=== PATIENT | female | born 1960 | race Hispanic/Latino ===

== ENCOUNTER 2019-08-30 15:02 | Outpatient (CLI) | payer BC ==
--- NOTE | 2019-08-30 15:58 | BD ---
BONE DENSITOMETRY USING DEXA: HISTORY: Osteoporosis. FINDINGS: Lumbar Spine: BMD (g/cm2) L1 0.596 T-Score: -3.6 Z-Score: -2.3 L2 0.649 T-Score: -2.4 Z-Score: -2.1 L3 0.550 T-Score: -4.9 Z-Score: -3.4 L4 0.692 T-Score: -3.4 Z-Score: -1.9 L1-L4 0.622 T-Score: -3.9 Z-Score: -2.5 Femoral Neck: 0.793 T-Score: -0.5 Z-Score: 0.6 Total Femur: 0.862 T-Score: -0.7 Z-Score: 0.2 Impression: Osteoporosis. POS: [facility]
--- NOTE | 2019-08-30 16:43 | MMO ---
Bilateral MAMMO Bilat Screen [facility]. CLINICAL HISTORY: Patient is 58 years old and is seen for screening. The patient has no family history of breast cancer. The patient has no personal history of cancer. VIEWS: The views performed were: bilateral craniocaudal with tomosynthesis and bilateral mediolateral oblique with tomosynthesis. FILMS COMPARED: The present examination has been compared to prior imaging studies performed at [facility] on 05/20/2009, 06/05/2010, 07/31/2015 and 04/21/2017. This study has been interpreted with the assistance of computer-aided detection. MAMMOGRAM FINDINGS: There are scattered fibroglandular densities. There are no suspicious masses, suspicious calcifications, or new areas of architectural distortion. IMPRESSION: THERE IS NO MAMMOGRAPHIC EVIDENCE OF MALIGNANCY. A ROUTINE FOLLOW-UP MAMMOGRAM IN 1 YEAR IS RECOMMENDED. THE RESULTS OF THIS EXAM WERE SENT TO THE PATIENT. ACR BI-RADS Category 1 - Negative MAMMOGRAPHY NOTE: 1. A negative mammogram report should not delay a biopsy if a dominant of clinically suspicious mass is present. 2. Approximately 10% to 15% of breast cancers are not detected by mammography. 3. Adenosis and dense breasts may obscure an underlying neoplasm. Reported by: JUSTIN THOMAS MD Electonically Signed: [id number]
== END 2019-08-30 15:03 | disposition home or self-care (01) ==
LOC: BICMAMMO 15:02
PROVIDERS: ATTEND Family Medicine
DX: Z12.31 Encounter for screening mammogram for malignant neoplasm of breast (principal); M81.0 Age-related osteoporosis without current pathological fracture; Z78.0 Asymptomatic menopausal state
CPT/HCPCS: 77063; 77067; 77080

== ENCOUNTER 2021-10-23 15:03 | Outpatient (CLI) | payer BC | END 2021-10-23 15:04 | disposition home or self-care (01) | LOC: BICMAMMO 15:03 | PROVIDERS: ATTEND Internal Medicine Rheumatology | DX: Z13.820 Encounter for screening for osteoporosis (principal); M15.9 Polyosteoarthritis, unspecified; M81.0 Age-related osteoporosis without current pathological fracture | CPT/HCPCS: 77080 ==

== ENCOUNTER 2023-06-30 18:37 | Emergency (ER) | payer BC ==
[2023-06-30] MEDS ORDERED: Dexamethasone 4 MG TAB ONE (22:18)
[2023-06-30] MEDS ORDERED: Ketorolac Tromethamine 30 MG (1 mL) VIAL ONE (22:18)
[2023-06-30] MEDS ORDERED: Dexamethasone 10 MG/ML VIAL ONE (22:21)
== END 2023-06-30 23:11 | disposition home or self-care (01) ==
LOC: ERS 18:37
DX: J02.9 Acute pharyngitis, unspecified (principal)
CPT/HCPCS: 87081; 87430; 96372; 99283; J1100; J1885; J8540